=== PATIENT | female | born 1965 | race Caucasian/White ===

== ENCOUNTER 2017-08-23 18:31 | Emergency (ER) | payer OTHER, BC ==
[~2017-08-23] VITALS: Ht 160 cm; Wt 70.8 kg
[~2017-08-23 18:31] MED LIST: EST.625T PO; OMEP-10 PO; SCR1T PO
[2017-08-23] MEDS ORDERED: CETI10CA PO (18:52)
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
[2017-08-23] MEDS ORDERED: ORPH100T PO ×2 (20:08→20:52)
[2017-08-23] MEDS ORDERED: HYDR-3812 PO (20:08)
[2017-08-23 20:15] VITALS: BP 105/69
== END 2017-08-23 20:15 | disposition home or self-care (01) ==
LOC: EDUNIT# 18:31 → ER 18:33
DX: S13.4XXA Sprain of ligaments of cervical spine, initial encounter (principal); Z90.89 Acquired absence of other organs; Z87.19 Personal history of other diseases of the digestive system; V49.60XA Unspecified car occupant injured in collision with unspecified motor vehicles in traffic accident, initial encounter
CPT/HCPCS: 70450; 72125; 99282

== ENCOUNTER → 2017-09-27 | Outpatient (CLI) | payer BC, OTHER ==
[~2017-09-27] MED LIST changes: +CETI10CA PO; +HYDR-3812 PO; +ORPH100T PO
--- NOTE | 2017-09-28 14:09 | Diagnostic Imaging Report ---
Bilateral screening mammogram 2D views with tomosynthesis The current study was also evaluated with a Computer Aided Detection (CAD) system. INDICATION: Screening. No current complaints stated on the questionnaire. COMPARISON: 12/03/2015. FINDINGS: The breasts are composed of heterogeneously dense parenchyma which may decrease mammographic sensitivity. Benign-appearing calcifications are seen. Biopsy clip in the medial aspect of the left breast is noted. Allowing for technique and positional differences, no suspicious change is seen. IMPRESSION: Dense breasts with no definite change. ACR BI-RADS Category 2: Benign findings. Result letter will be mailed to the patient. Note: At least 10% of breast cancer is not imaged by mammography. Dictated by: Dictated on workstation # [id number]
== END ==
LOC: RAD 15:37
PROVIDERS: ATTEND Obstetrics & Gynecology
DX: Z12.31 Encounter for screening mammogram for malignant neoplasm of breast (principal)
CPT/HCPCS: 77067

== ENCOUNTER → 2018-10-11 | Outpatient (CLI) | payer BC ==
[~2018-10-11] MED LIST changes: +ACHD5005 PO; -HYDR-3812 PO
--- NOTE | 2018-10-11 18:11 | Diagnostic Imaging Report ---
INDICATION: Routine screening. COMPARISON: Comparison is made with prior mammograms from 09/27/2017 and 12/03/2015. TECHNIQUE: 2D and 3D bilateral screening mammography was performed with computer-aided detection (CAD) system. FINDINGS: Both breasts are heterogeneously dense, limiting the sensitivity of mammography. There is a cluster microcalcifications in the upper slightly inner right breast at mid depth, which may be slightly increasing in number when compared with prior exams dating back to 2012. Additional views are recommended. These may be associated with a small nodule. No other mass or malignant appearing microcalcifications are seen. There is a biopsy clip in the medial left breast. Axillae are unremarkable. IMPRESSION: Right breast calcifications. Additional views are recommended for further evaluation. ACR BI-RADS Category 0: Incomplete. (Needs additional imaging evaluation). Result letter will be mailed to the patient. Note: At least 10% of breast cancer is not imaged by mammography. Dictated by: Dictated on workstation # [id number]
== END ==
LOC: RAD 14:56
PROVIDERS: ATTEND Obstetrics & Gynecology
DX: Z12.31 Encounter for screening mammogram for malignant neoplasm of breast (principal); R92.1 Mammographic calcification found on diagnostic imaging of breast
CPT/HCPCS: 77067

== ENCOUNTER → 2018-11-07 | Outpatient (CLI) | payer BC ==
--- NOTE | 2018-11-07 21:16 | Diagnostic Imaging Report ---
EXAM: Unilateral diagnostic right mammogram. INDICATION: Abnormal screening mammogram. FINDINGS: The recent screening mammogram performed on 10/11/2018 noted a cluster of microcalcifications in the upper slightly inner aspect of the right breast at mid depth. A compression magnification view of these calcifications do show that they are fairly numerous and tightly clustered. I'm not convinced that they are malignant but there are technically indeterminate. Therefore, I would recommend that a stereotactic biopsy be performed to exclude malignancy. IMPRESSION: The microcalcifications in the midportion of the right breast are technically indeterminate. A stereotactic biopsy would be recommended to exclude a malignancy. These results will be discussed with Dr. Corbett. ACR BI-RADS Category 4: Suspicious abnormality. Result letter will be mailed to the patient. Note: At least 10% of breast cancer is not imaged by mammography. Dictated by: Dictated on workstation # [id number]
== END ==
LOC: RAD 14:27
PROVIDERS: ATTEND Obstetrics & Gynecology
DX: N64.89 Other specified disorders of breast (principal); R92.8 Other abnormal and inconclusive findings on diagnostic imaging of breast

== ENCOUNTER → 2018-11-23 | Outpatient (CLI) | payer BC ==
[~2018-11-23] VITALS: Ht 160 cm; Wt 67.1 kg
[~2018-11-23] MED LIST changes: +LIDOCAINE 1% INJ 20 ML 20 ML VIAL INJ ONE
--- NOTE | 2018-11-23 11:40 | Diagnostic Imaging Report ---
INDICATION: Right breast calcifications. Patient presents for stereotactic biopsy. PROCEDURE: The patient was brought to the stereotactic suite and placed in the chair in a sitting upright position. Right breast with positioned mediolaterally. Stereotactic imaging was performed. The cluster of calcifications in the upper and slightly inner right breast were stereotactically targeted. The skin of the right breast was prepped and draped in usual sterile fashion. Small amount of 1% lidocaine was utilized for local anesthesia. 8-gauge stereotactic needle was advanced into the right breast from a medial approach and placed per target coordinates. A total of four core biopsies were obtained. Radiograph of the core samples does show majority of the calcifications located in sample #3. The marker clip was then deployed. Needle was withdrawn and hemostasis was obtained using manual compression. Patient tolerated the procedure well. Post procedure 2D mammogram demonstrates a clip in the upper central right breast. The majority of previously noted calcifications appear to have been removed. IMPRESSION: Successful stereotactic biopsy of the right breast calcifications, as described. Pathology results are currently pending. Dictated by: Dictated on workstation # [id number]
== END ==
LOC: RAD 09:14
PROVIDERS: ATTEND Obstetrics & Gynecology
DX: D24.1 Benign neoplasm of right breast (principal); N60.91 Unspecified benign mammary dysplasia of right breast; N60.21 Fibroadenosis of right breast
CPT/HCPCS: 19081; 88305

== ENCOUNTER → 2019-05-18 | Outpatient (CLI) | payer BC ==
[~2019-05-18] MED LIST changes: -LIDOCAINE 1% INJ 20 ML 20 ML VIAL INJ ONE
--- NOTE | 2019-05-18 22:00 | Diagnostic Imaging Report ---
INDICATION: Followup right breast stereotactic biopsy. COMPARISON: Correlation is made with prior mammogram from 11/07/2018. EXAMINATION: Unilateral right 2D and 3D diagnostic mammography was performed with CAD. IMPRESSION: Right breast remains heterogeneously dense, limiting the sensitivity of mammography. Stereotactic marker clip in the central right breast is noted. Majority of previously noted calcifications have been removed. No new mass or malignant appearing microcalcifications are seen. Dictated by: Dictated on workstation # [id number]
== END ==
LOC: RAD 12:52
PROVIDERS: ATTEND Obstetrics & Gynecology
DX: R92.2 Inconclusive mammogram (principal); Z98.890 Other specified postprocedural states

== ENCOUNTER → 2020-06-21 | Outpatient (CLI) | payer BC ==
--- NOTE | 2020-06-24 09:03 | Diagnostic Imaging Report ---
INDICATION: Routine screening. COMPARISON: 10/11/2018 and 09/27/2017. TECHNIQUE: 2D and 3D bilateral screening mammography was performed with CAD. FINDINGS: Both breasts remain heterogeneously dense, limiting the sensitivity of mammography. There are marker clips identified in both breasts from prior biopsy. There is a density in the upper right breast at posterior depth near the axillary tail on the MLO view. This appears more prominent than on the prior exam. Additional views are recommended. This may represent superimposed tissue. No suspicious microcalcifications are seen. IMPRESSION: Right breast density. Additional views are recommended for further evaluation. ACR BI-RADS Category 0: Incomplete. (Needs additional imaging evaluation). Result letter will be mailed to the patient. Note: At least 10% of breast cancer is not imaged by mammography. Dictated by: Dictated on workstation # [id number]
== END ==
LOC: RAD 15:46
PROVIDERS: ATTEND Obstetrics & Gynecology
DX: Z12.31 Encounter for screening mammogram for malignant neoplasm of breast (principal)
CPT/HCPCS: 77063; 77067

== ENCOUNTER → 2020-07-05 | Outpatient (CLI) | payer BC ==
--- NOTE | 2020-07-05 14:08 | Diagnostic Imaging Report ---
INDICATION: Right breast density. The patient presents for additional views. CORRELATION is made with recent screening study from 06/21/2020. Unilateral right 2-D and 3-D diagnostic mammography was performed. This included spot compression MLO, conventional 90 degree lateral view as well as exaggerated CC views were performed. Additional views fail to demonstrate a discrete mass. The area of density noted in the region of the axillary tail on prior exam most likely represented superimposed tissue. No mass or malignant-appearing microcalcifications are seen. IMPRESSION: BI-RADS Category 2. Additional views fail to demonstrate a discrete mass. The patient may return to routine annual screening mammography. ACR BI-RADS Category 2: Benign findings. Result letter will be mailed to the patient. Note: At least 10% of breast cancer is not imaged by mammography. Dictated by: Dictated on workstation # [id number]
== END ==
LOC: RAD 13:49
PROVIDERS: ATTEND Obstetrics & Gynecology
DX: R92.2 Inconclusive mammogram (principal); R92.8 Other abnormal and inconclusive findings on diagnostic imaging of breast
CPT/HCPCS: 77065; G0279

== ENCOUNTER → 2021-08-29 | Outpatient (CLI) | payer BC ==
--- NOTE | 2021-08-29 12:37 | Diagnostic Imaging Report ---
INDICATION: Routine screening. Comparison is made with prior mammogram 06/21/2020 and 10/11/2018. 2-D and 3-D bilateral screening mammography was performed with CAD. Both breasts are heterogeneously dense, limiting the sensitivity of mammography. Biopsy marker clips are noted in both breasts. No mass or malignant-appearing microcalcifications are seen. Axillae are unremarkable. IMPRESSION: BI-RADS Category 2 No mammographic features suspicious for malignancy are identified. ACR BI-RADS Category 2: Benign findings. Result letter will be mailed to the patient. Note: At least 10% of breast cancer is not imaged by mammography. Dictated by: Dictated on workstation # [id number]
== END ==
LOC: RAD 08:05
PROVIDERS: ATTEND Obstetrics & Gynecology
DX: Z12.31 Encounter for screening mammogram for malignant neoplasm of breast (principal)
CPT/HCPCS: 77063; 77067

== ENCOUNTER → 2022-07-15 | Outpatient (CLI) | payer BC | END | disposition home or self-care (01) | LOC: PREOP 05:31 | PROVIDERS: ATTEND Internal Medicine | DX: Z01.818 Encounter for other preprocedural examination (principal) ==

== ENCOUNTER → 2022-08-31 | Outpatient (CLI) | payer BC ==
--- NOTE | 2022-09-01 12:46 | Diagnostic Imaging Report ---
Indication: Routine screening. Comparison is made with prior mammogram 08/29/2021 and 06/21/2020. 2-D and 3-D bilateral screening mammography was performed with CAD. CAD is utilized. The current study was also evaluated with a Computer Aided Detection (CAD) system. Both breasts are heterogeneously dense, limiting the sensitivity of mammography. Biopsy marker clips again noted in both breasts. No mass or malignant-appearing microcalcifications are seen. There are benign calcifications. Axillae are unremarkable. IMPRESSION: BI-RADS Category 2 No mammographic features suspicious for malignancy are identified. ACR BI-RADS Category 2: Benign findings. Result letter will be mailed to the patient. Note: At least 10% of breast cancer is not imaged by mammography. Dictated by: Dictated on workstation # [id number]
== END ==
LOC: RAD 14:33
PROVIDERS: ATTEND Obstetrics & Gynecology
DX: Z12.31 Encounter for screening mammogram for malignant neoplasm of breast (principal)
CPT/HCPCS: 77063; 77067

== ENCOUNTER 2022-09-09 13:00 | Outpatient (CLI) | payer BC ==
[~2022-09-09] VITALS: Ht 160 cm; Wt 74.4 kg
[2022-09-10] MEDS ORDERED: MULT-593 PO (09:13)
[2022-09-10] MEDS ORDERED: ESTR0.62 PO (09:13)
[2022-09-10] MEDS ORDERED: CALC600T91 PO (09:13)
== END 2022-09-10 09:14 | disposition home or self-care (01) ==
LOC: PREOP 13:00
PROVIDERS: ATTEND Internal Medicine
DX: Z01.818 Encounter for other preprocedural examination (principal)

== ENCOUNTER 2022-09-18 08:14 | Day surgery (SDC) | payer BC ==
--- NOTE | 2022-07-15 08:55 | HISTORY AND PHYSICAL ---
DATE OF SERVICE: COLONOSCOPY HISTORY AND PHYSICAL DATE OF ADMISSION: ____. HISTORY OF PRESENT ILLNESS: The patient is a 56-year-old white female seen for wellness evaluation. She has a history of asthma, mild intermittent that she reports really has not given her much trouble since she retired from a stressful job. A little over a week ago, she did have some abdominal cramping in the lower quadrant followed by some loose stools that just lasted for 24 hours, then resolved without night sweats, chills or fever. Otherwise, she has felt well. SOCIAL HISTORY: Retired. No drinking or smoking history. FAMILY HISTORY: Updated. Pertinent for osteoporosis in several sisters; otherwise, longevity except for her father, who was a heavy smoker, expiring in his late 70s from lung cancer. No other cancers in the family that she is aware of. PHYSICAL EXAMINATION: GENERAL: Reveals a white female in no acute distress. Weight up 2 pounds, 164.6. VITAL SIGNS: Blood pressure 110/74. HEENT: Unremarkable. Sclerae nonicteric. Ear canals clear with normal TMs. NECK: Revealed no JVD, adenopathy or bruits. CHEST: Clear to auscultation. CARDIOVASCULAR: Reveals a regular rate and rhythm without murmur, S3 or S4. ABDOMEN: Soft, supple without mass, organomegaly or tenderness. EXTREMITIES: Reveal no cyanosis, clubbing or edema. SKIN: Evaluation revealed no suspicious nevi. ASSESSMENT: Stable wellness evaluation. Due to family history for osteoporosis, the patient is being set up for screening DEXA scan. It has been 10 years since her last and first colonoscopy. She is being set up for screening colonoscopy as well. I will see her back in six months. Job ID: [id number] DocumentID: [id number] Dictated Date: 06/17/2022 13:30:02 Associate Professor Of Theology Date: 06/17/2022 13:40:30 Dictated By: KATHY PINEDA MD [facility] HOSPITALJeanne
[~2022-09-18] VITALS: Ht 160 cm; Wt 74.4 kg
[~2022-09-18 08:14] MED LIST changes: +CALC600T91 PO; +ESTR0.62 PO; +MULT-593 PO
[2022-09-18] MEDS ORDERED: LACTATED RINGERS 1,000 ML IV STA (08:19)
--- NOTE | 2022-09-18 08:23 | Pre-Op Note & Conscious Sedat ---
Pre-Operative Progress Note Date H&P Reviewed: Sep 18, 2022 Time H&P Reviewed: 08:22 History & Physical: H&P Reviewed, Patient Examed, No changes noted Pre-Op Diagnosis: screening Conscious Sedation Pre-Proced ASA Score 2 For ASA 3 and 4: Consider anesthesia and medical clearance. Also, for patients with a history of failed moderate sedation consider anesthesia. Airway Lungs Heart ASA score ASA 1: a normal healthy patient ASA 2: a patient with a mild systemic disease (mid diabetes, controlled hypertension, obesity ASA 3: a patient with a severe systemic disease that limits activity (angina, COPD, prior Myocardial infarction) ASA 4: a patient with an incapacitating disease that is a constant threat to life (CHF, renal failure) ASA 5: a moribund patient not expected to survive 24 hrs. (ruptured aneurysm) ASA 6: a declared brain- patient whose organs are being harvested. For emergent operations, add the letter E after the classification Mallampati Classification Grade 1 Sedation Plan Analgesia, Amnesia, Plan communicated to team members, Discussed options with patient/fam, Discussed risks with patient/fam The patient is an appropriate candidate to undergo the planned procedure, sedation, and anesthesia. The patient immediately re-assessed prior to indication. KATHY PINEDA MD Sep 18, 2022 08:23
[2022-09-18 08:45] VITALS: BP 128/79
[2022-09-18] MEDS ORDERED: MIDAZOLAM 2 MG/2 ML (VERSED) VIAL ONE (09:00)
[2022-09-18] MEDS ORDERED: PROPOFOL INJECTION 50 ML IV ONE (09:00)
[2022-09-18 09:35] VITALS: BP 98/54
[2022-09-18 09:40] VITALS: BP 97/55
--- NOTE | 2022-09-18 09:42 | Progress Note-Post Operative ---
Post-Procedure Note Physician (s)/Job Printer Apprentice (s) Physician KATHY PINEDA MD Pre-Procedure Diagnosis Pre-Procedure Diagnosis: screening Post-Procedure Note Findings/Procedure Note Indication for procedure screening colonoscopy. Prior to undergoing colonoscopy digital rectal evaluation was performed. Anal stricture tone was normal and the perianal reflex is intact. No abnormalities noted on visual inspection anal canal or distal rectal vault. The colonoscope was then inserted into the rectum and under direct physician advanced to cecum. The cecum identified by identification of the as well as cecal strap. Photographic documentation was obtained. Karil section was made as the colonoscope withdrawn. Quality prep was good. Findings: There are no evidence for internal or external hemorrhoids And the rectum was unremarkable. Present the mid sigmoid colon was a questionable diminutive 3 mm sessile polyp that was biopsied and ablated with no blood loss. There was no evidence for diverticular disease. The descending colon splenic flexure and transverse colon were unremarkable. There was a sessile roughly 4 by 1 cm polyp noted at the hepatic flexure it was grasped with a hot forceps in 2 locations and cauterized. Tissue was submitted for histopathology. There was minimal blood loss. The remainder of the ascending colon and cecum were unremarkable. A/P 1. 2 polyps removed the more significant appearing 1 from the hepatic flexure as noted above via hot forceps with no significant blood loss. This was an otherwise normal colonoscopy to the cecum. We will need to await histopathology before making recommendations on future surveillance colonoscopy. Post-Procedure Diagnosis Post-operative diagnosis: screening KATHY PINEDA MD Sep 18, 2022 09:42
[2022-09-18 09:45] VITALS: BP 99/64
[2022-09-18 10:05] VITALS: BP 110/73
--- NOTE | 2022-09-18 10:15 | Anesthesia-General Post-Op ---
MAC Patient Condition Mental Status/LOC: Same as Preop Cardiovascular: Satisfactory Nausea/Vomiting: Absent Respiratory: Satisfactory Pain: Controlled Complications: Absent Post Op Complications Complications None Follow Up Care/Instructions Patient Instructions None needed. Anesthesiology Discharge Order Discharge Order Patient is doing well, no complaints, stable vital signs, no apparent adverse anesthesia problems. No complications reported per nursing. NAVEEN WALTON CRNA Sep 18, 2022 10:15
[2022-09-18 15:29] VITALS: BP 110/73
== END 2022-09-18 10:35 | disposition home or self-care (01) ==
LOC: ENDO 08:14
PROVIDERS: ATTEND Internal Medicine
DX: Z12.11 Encounter for screening for malignant neoplasm of colon (principal); K63.5 Polyp of colon; Z82.62 Family history of osteoporosis

== ENCOUNTER → 2023-09-02 | Outpatient (CLI) | payer BC ==
[~2023-09-02] MED LIST changes: -ORPH100T PO; +ORPH100T3 PO
--- NOTE | 2023-09-02 15:43 | Diagnostic Imaging Report ---
Indication: Routine screening. Comparison is made with prior mammogram from 08/31/2022 and 08/29/2021. 2-D and 3-D bilateral screening mammography was performed with CAD. The current study was also evaluated with a Computer Aided Detection (CAD) system. Both breasts are heterogeneously dense, limiting the sensitivity of mammography. The overall parenchymal pattern is stable. No dominant mass or malignant-appearing microcalcifications are seen. There are biopsy marker clips within both breasts. Axillae are unremarkable. IMPRESSION: BI-RADS Category 2 No mammographic features suspicious for malignancy are identified. ACR BI-RADS Category 2: Benign findings. Result letter will be mailed to the patient. Note: At least 10% of breast cancer is not imaged by mammography. Dictated by: Dictated on workstation # [id number]
== END ==
LOC: RAD 08:00
PROVIDERS: ATTEND Obstetrics & Gynecology
DX: Z12.31 Encounter for screening mammogram for malignant neoplasm of breast (principal)
CPT/HCPCS: 77063; 77067

== ENCOUNTER → 2023-09-02 | Outpatient (CLI) | payer BC | LOC: RAD 14:42 | PROVIDERS: ATTEND Obstetrics & Gynecology | DX: Z53.9 Procedure and treatment not carried out, unspecified reason (principal) ==